=== PATIENT | male | born 2005 | race Caucasian/White ===

== ENCOUNTER 2024-11-22 23:51 | Emergency (ER) | payer MEDICAID, OTHER ==
[~2024-11-22] VITALS: Ht 165.1 cm; Wt 65.9 kg
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
[2024-11-23 00:13] VITALS: PULSE 98; RESP 18; O2SAT 98
[2024-11-23] MEDS: LACTATED RINGER'S 1,000 ML IV ONE (00:15)
[2024-11-23] MEDS ORDERED: MORPHINE SULFATE INJ 2 MG/ml SYRG IV ONE (00:30)
[2024-11-23 00:36] LABS: Basophils # (auto) 0.1 10 ^3/uL (0-0.2); Basophils % (auto) 0.4 % (0.0-2.0); Eosinophils # (auto) 0.1 10 ^3/uL (0-0.8); Eosinophils % (auto) 0.5 % (0.0-7.0); Hematocrit 49.1 % (41.0-53.0); Hemoglobin 16.3 g/dL (13.5-17.5); Lymphocytes # (auto) 3.4 10 ^3/uL (0.4-5.4); Lymphocytes % (auto) 27.9 % (10.0-50.0); Mean Corpuscular Hemoglobin 29.8 pg (28.0-32.0); Mean Corpuscular Hgb Conc. 33.2 g/dL (32.0-36.0); Mean Corpuscular Volume 89.7 fL (80.0-100.0); Monocytes # (auto) 1.1 10 ^3/uL (0-1.3); Monocytes % (auto) 9.4 % (0.0-12.0); Neutrophils # (auto) 7.4 10 ^3/uL (1.6-8.6); Neutrophils % (auto) 61.8 % (37.0-80.0); Nucleated Red Blood Cells % 0.1 %; Platelet Count (auto) 254 10^3/uL (140-450); Red Blood Cells 5.47 10^6/uL (4.5-5.90); Red Cell Distribution Width 14.3 % (11.8-14.3)
[2024-11-23 00:51] LABS: Alanine Aminotransferase 19 U/L (7-40); Alkaline Phosphatase 92 U/L (46-116); Anion Gap 19 (5-15); Aspartate Aminotransferase 36 U/L (13-40); BUN/Creatinine Ratio 6.1 (10.0-20.0); Bilirubin, Total 0.8 mg/dL (0.2-1.0); Calcium 9.3 mg/dL (8.7-10.4); Chloride 106 mmol/L (98-107); Sodium 143 mmol/L (136-145); Total Protein 7.5 g/dL (5.7-8.2)
[2024-11-23 00:53] LABS: Albumin 4.8 g/dL (3.2-4.8); Blood Urea Nitrogen 7 mg/dL (9-23); Carbon Dioxide 18 mmol/L (20-31); Glucose 81 mg/dL (74-106); Potassium 3.1 mmol/L (3.5-5.1)
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
[2024-11-23] MEDS: SODIUM CHLORIDE 0.9% 1,000 ML IV ONE (02:30)
[2024-11-23] MEDS: fentaNYL CITRATE 100 MCG/2 ML VL IV ONE (02:33)
[2024-11-23] MEDS: MORPHINE SULFATE INJ 2 MG/ml SYRG IV ONE (02:33)
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
[2024-11-23 04:44] LABS: Urine Bacteria None Seen /hpf (None Seen)
[2024-11-23 05:02] LABS: Urine Blood Negative /uL (Negative); Urine Clarity Clear (Clear); Urine Color Colorless (Yellow); Urine Protein, UAD Negative (Negative); Urine Specific Gravity 1.008 (1.001-1.035); Urine Squamous Epithelial Cell None Seen /hpf (<5); Urine Urobilinogen Normal (Negative); Urine WBC 1 /HPF (0-3)
[2024-11-23 05:08] LABS: Amphetamine Screen, Urine Neg (NEGATIVE); Barbiturate Scree,Urine Neg (NEGATIVE); Benzodiazephine Screen, Urine Neg (NEGATIVE); Cannabinoid Screen, Urine Pos (NEGATIVE); Cocaine Screen, Urine Neg (NEGATIVE); Opiate Scree,Urine Neg (NEGATIVE); Phencyclidine Screen, Urine Neg (NEGATIVE)
[2024-11-23] MEDS: POTASSIUM EFFERVESENT TAB 25 MEQ PO ONE (05:11)
[2024-11-23 07:40] VITALS: PULSE 80; RESP 21; TEMP 98.8; O2SAT 98
[2024-11-23 08:30] VITALS: BP 128/63; PULSE 100; RESP 20; O2SAT 98
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
== END 2024-11-23 08:45 | disposition left against medical advice (07) ==
LOC: ER 11-23 00:02
DX: S43.015A Anterior dislocation of left humerus, initial encounter (principal); S01.01XA Laceration without foreign body of scalp, initial encounter; S20.219A Contusion of unspecified front wall of thorax, initial encounter; S50.311A Abrasion of right elbow, initial encounter; E87.6 Hypokalemia; F12.90 Cannabis use, unspecified, uncomplicated; R51.9 Headache, unspecified; Y08.89XA Assault by other specified means, initial encounter; Y93.89 Activity, other specified; Y92.89 Other specified places as the place of occurrence of the external cause; Y99.8 Other external cause status
CPT/HCPCS: 23650; 36415; 70450; 70486; 71250; 72125; 73020; 73030; 80053; 80307; 81001; 85025; 96361; 96374; 99285; J3010; J7030

== ENCOUNTER 2024-11-29 18:26 | Emergency (ER) | payer MEDICAID ==
[~2024-11-29] VITALS: Ht 165.1 cm; Wt 66.1 kg
[2024-11-29 18:54] VITALS: TEMP 98.7
--- NOTE | 2024-11-29 19:04 | ED.PDOC ---
Arvind. trauma (HPI) HPI Comments 19-year-old male presents to the ED status post fall injury shoulder pain. Patient states fell on his left side and felt his shoulder pop out. Complaining of severe pain 10/10 on pain scale sharp shooting pain in the left shoulder down the biceps into his elbow. Not taken any medication further relief reports no numbness, or weakness he notes no other known injury. Chief Complaint: Upper Extremity Time Seen by MD: 18:32 Reviewed notes: Nurses Notes, Medications, Allergies Allergies: Coded Allergies: NO KNOWN ALLERGIES (Unverified , 11/23/24) Information Source: Patient Mode of Arrival: Ambulatory Past Medical History PAST MEDICAL HISTORY: Denies Surgical History: Denies all surgeries Family History Family History: Reviewed,noncontributory to illness Social History Smoker: Non-Smoker Alcohol: Denies ETOH Use Drugs: Denies Drug Use Constitutional: denies: chills, diaphoresis, fatigue, fever, malaise, sweats, weakness, others EENTM: denies: blurred vision, double vision, ear bleeding, ear discharge, ear drainage, ear pain, ear ringing, eye pain, eye redness, hearing loss, mouth pain, mouth swelling, nasal discharge, nose bleeding, nose congestion, nose pain, photophobia, tearing, throat pain, throat swelling, voice changes, others Respiratory: denies: cough, hemoptysis, orthopnea, SOB at rest, shortness of breath, SOB with excertion, stridor, wheezing, others Cardiovascular: denies: chest pain, dizzy spells, diaphoresis, Dyspnea on exe rtion, edema, irregular heart beat, left arm pain, lightheadedness, palpitations, PND, syncope, others Gastrointestinal: denies: abdomen distended, abdominal pain, blood streaked bowels, constipated, diarrhea, dysphagia, difficulty swallowing, hematemesis, melena, nausea, poor appetite, poor fluid intake, rectal bleeding, rectal pain, vomiting, others Genitourinary: denies: burning, dysuria, flank pain, frequency, hematuria, incontinence, penile discharge, penile sore, pain, testicle pain, testicle swelling, urgency, others Neurological: denies: dizziness, fainting, headache, left sided numbness, left sided weakness, numbness, paresthesia, pre-existing deficit, right sided numbness, right sided weakness, seizure, speech problems, tingling, tremors, weakness, others Musculoskeletal: reports: others (Left shoulder pain); denies: back pain, gout, joint pain, joint swelling, muscle pain, muscle stiffness, neck pain Integumetry: denies: bruises, change in color, change in hair/nails, dryness, laceration, lesions, lumps, rash, wounds, others Allergic/Immunocompromised: denies: Difficulty Healing, Frequent Infections, Hives, Itching, others Hematologic/Lymphatic: denies: anemia, blood clots, easy bleeding, easy bruising, swollen glands, others Endocrine: denies: excessive hunger, excessive sweating, excessive thirst, excessive urination, flushing, intolerance to cold, intolerance to heat, unexplained weight gain, unexplained weight loss, others Psychiatric: denies: anxiety, bipolar disorder, depression, hopeless, panic disorder, schizophrenia, sleepless, suicidal, others Physical Exam General Appearance: No Apparent Distress, Normal HEENT: Pharynx Normal Neck: Full Range of Motion, Non-Tender Respiratory: Lungs Clear, No Respiratory Distress, Normal Breath Sounds Cardiovascular: No Murmur, Normal Peripheral Pulses, Regular Rate/Rhythm Breast Exam: Deferred Gastrointestinal: Non Tender, Soft Genitalia: Deferred Pelvic: Deferred Rectal: Deferred Extremities: Normal range of motion, No pedal edema Musculoskeletal : Apperance: Normal Neurologic: Alert, 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 Was a procedure done?: Yes Sedation Sedation?: No Informed consent obtained: Yes Reduction Indication: Dislocation Sedation: Consents obtained, Other (Sedation use patient tolerated well left shoulder reduction) Intra-articular anesthetic sheila: No Post-reduction x-ray show: Reduction, Good Alignment Informed consent obtained: Yes Risks/benefits/alt described: Yes Notes Patient tolerated well postprocedure x-ray shows good alignment fractures or osseous lesions placed in sling X-Ray, Labs, Meds, VS Vital Signs Date Time Temp Pulse Resp B/P (MAP) Pulse Ox O2 Delivery O2 Flow Rate FiO2 11/29/24 19:50 107 17 97 Room Air* 0 21 11/29/24 19:50 107 16 133/79 (97) 11/29/24 18:54 98.7 87 18 98 98.7 Current Medications Medications (Trade) Dose Ordered Sig/Danielle Route Start Time Stop Time Status Last Admin Oxycodone/ Acetaminophen (Percocet 5/ 325MG Tablet) 2 tab ONCE ONCE PO 11/29/24 19:15 11/29/24 19:16 DC 11/29/24 19:59 X-Ray, Labs, Meds, VS Comment See procedure note. We will script trial of ibuprofen advised to take medication as prescribed side effects discussed.. use a sling for comfort. Follow up with your PCP in 2-3 days consider physical therapy for strengthening of the left shoulder advised to avoid reaching over his head pushing pulling for the next several days. ER return precautions given patient indicates understanding and agrees with discharge plan of care. Time of 1ST Reevaluation: 18:45 Reevaluation 1ST: Unchanged Time of 2ND Reevaluation: 20:12 Reevaluation 2ND: Improved Patient Education/Counseling: Diagnosis, Treatment, Prognosis, Need For Follow Up Family Education/Counseling: No Family Present Departure 1 Departure Time of Disposition: 20:12 Impression: Primary Impression: Dislocation of left shoulder joint Qualified Codes: S43.005A - Unspecified dislocation of left shoulder joint, initial encounter Disposition: HOME / SELF CARE / HOMELESS Condition: Stable e-Prescriptions Ibuprofen (Ibuprofen) 800 Mg Tab 800 MG PO Q8HP PRN for 4 Days, #12 TAB Prov: SEE PANIAGUA 11/29/24 Discharged With: Self Critical Care Note Critical Care Time?: No Stability Stability form required: SEE Nicholas Nov 29, 2024 19:04
[2024-11-29 19:50] VITALS: PULSE 107; RESP 17; O2SAT 97
[2024-11-29] MEDS: OXYCODONE W/ ACETAMINOPHEN 5/325MG TABLET PO ONE (19:59)
--- NOTE | 2024-11-29 20:01 | DVH ---
Indication: POST REDUCTION Technique: 4 views left shoulder Comparison: None FINDINGS/IMPRESSION: No radiographic evidence for acute fracture or dislocation. No significant soft tissue edema. No rad iopaque foreign body.
[2024-11-29] MEDS ORDERED: IBUP-1456 PO (20:13)
[2024-11-29 20:56] VITALS: BP 122/76; PULSE 78; O2SAT 98
== END 2024-11-29 21:16 | disposition home or self-care (01) ==
LOC: ER 18:26
DX: S43.085A Other dislocation of left shoulder joint, initial encounter (principal); W18.39XA Other fall on same level, initial encounter; Y93.89 Activity, other specified; Y92.89 Other specified places as the place of occurrence of the external cause; Y99.8 Other external cause status
CPT/HCPCS: 23650; 73030

== ENCOUNTER 2025-02-16 09:10 | Emergency (ER) | payer SELFPAY ==
[~2025-02-16] VITALS: Ht 165.1 cm; Wt 68.2 kg
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
[2025-02-16] MEDS ORDERED: BACDST PO (09:52)
[2025-02-16] MEDS ORDERED: IBUP1TAB5 PO (09:52)
[2025-02-16 09:58] VITALS: BP 124/64; PULSE 78; RESP 18; TEMP 98.7; O2SAT 98
== END 2025-02-16 10:00 | disposition home or self-care (01) ==
LOC: ER 09:10
DX: L02.413 Cutaneous abscess of right upper limb (principal); L02.416 Cutaneous abscess of left lower limb; L03.116 Cellulitis of left lower limb

== ENCOUNTER → 2025-02-17 | Emergency (ER) | payer MEDICAID, OTHER ==
[~2025-02-17] VITALS: Ht 165.1 cm; Wt 68.1 kg
[~2025-02-17] MED LIST: BACDST PO; IBUP1TAB5 PO
[2025-02-17 09:01] VITALS: BP 123/77; PULSE 85; RESP 20; TEMP 97.7; O2SAT 99
== END | disposition left against medical advice (07) ==
LOC: ER 08:59
DX: L02.511 Cutaneous abscess of right hand (principal); Z53.21 Procedure and treatment not carried out due to patient leaving prior to being seen by health care provider